=== PATIENT | female | born 1945 | race Caucasian/White ===

== ENCOUNTER 2021-04-14 12:43 | Inpatient (IN) | payer MEDICARE, OTHER, SELFPAY ==
[2021-04-14] VITALS (32 sets, daily range): BP systolic 110–186; BP diastolic 46–79; PULSE 4–88; RESP 20–38; TEMP 36.5–36.7; O2SAT 88–100
--- NOTE | ~2021-04-14 | XR_ITS ---
EXAMINATION: XR chest 1V portable INDICATION: Shortness of breath TECHNIQUE: Portable AP chest at 1301 hours COMPARISON: None available FINDINGS: Cardiomegaly is there are tfoxx-pm-[id number] sized pleural effusions. Airspace opacities are present in the mid and lower lung zones. There is a diffuse interstitial pattern. No pneumothorax is identified. A dual-lead cardiac pacemaker of the right chest wall ends with leads in expected locati ons. IMPRESSION: 1. Cardiomegaly with mild pulmonary edema. 2. Xrymh-oe-ijckumrg pleural effusions. 3. Airspace opacities of the mid and lower lung zones, consistent with atelectasis versus pneumonia. Reviewed, dictated and finalized at location A. CY DIRECTOR IMPRESSION: 1. Cardiomegaly with mild pulmonary edema. 2. Tpibs-hy-gpncmqvy pleural effusions. 3. Airspace opacities of the mid and lower lung zones, consistent with atelecta sis versus pneumonia.
--- NOTE | ~2021-04-14 | XR_ITS ---
XR chest 1V portable 04/17/2021 15:51 Indication: Pneumonia Procedure: AP portable chest Comparison: 04/14/2021 Findings: Borderline heart size. Bilateral airspace disease with moderate right pleural effusion. Pac emaker leads stable. No pneumothorax. No acute osseous abnormality. There are symmetric degenerative changes of the shoulders. Impression: 1: Bilateral airspace disease, most likely edema or pneumonia. 2: Moderate right pleural effusion. Reviewed, dictated and finalized at location A. R BALANCER Impression: 1: Bilateral airspace disease, most likely edema or pneumonia. 2: Moderate right pleural effusion.
--- NOTE | 2021-04-14 13:17 | ED.GENADULT ---
HPI - General Adult General Chief complaint: Shortness of Breath/Dyspnea Stated complaint: SOB Time Seen by Provider: 04/14/21 12:56 History of Present Illness HPI narrative: Patient is a 76-year-old female presents emerged department with chief complaint of shortness of breath. Patient has history of end-stage renal disease on dialysis and reports that she started getting more more short of breath and reports that she is not able to get a good deep breath patient reports has not missed any dialysis reports that she is not had a change in her overall body weight the patient denies fever denies chills reports has had a dry cough. Related Data Home Medications Medication Instructions Recorded Confirmed blood sugar diagnostic #10 each 08/12/19 01/30/20 cholecalciferol (vitamin D3) 50 2,000 unit PO DAILY cap 08/12/19 02/02/21 mcg (2,000 unit) capsule lancets 26 gauge #100 each 08/12/19 01/30/20 multivitamin 1 cap PO DAILY cap 08/12/19 01/30/20 calcium acetate(phosphat bind) 667 667 mg PO .COMPLEX 01/30/20 02/02/21 mg capsule apixaban 2.5 mg tablet 2.5 mg PO BID 02/02/21 02/02/21 atorvastatin 40 mg tablet 80 mg PO DAILY tablet 02/02/21 02/02/21 polyethylene glycol 3350 17 17 g PO ONCE PRN g 02/02/21 02/02/21 gram/dose oral powder Allergies Allergy/AdvReac Type Severity Reaction Status Date / Time zolpidem Allergy Unknown Agitated Verified 02/02/21 13:12 Review of Systems Review of Systems: A 10 system review of systems was completed on the patient and is negative except for what is stated in the HPI. Nursing and ancillary documentation was reviewed. [facility] [place] Past Medical History Medical History Anemia CAD (coronary artery disease) Chronic back pain Chronic ischemic heart disease Environmental allergies ESRD (end stage renal disease) on dialysis Essential (primary) hypertension GERD without esophagitis History of pulmonary embolism 2013 after left ankle replacement Hx of cardiac pacemaker 2018 Lumbar back pain with radiculopathy affecting right lower extremity Mixed hyperlipidemia GABRIELE (obstructive sleep apnea) Osteoarthritis Osteoporosis Pacemaker Pacemaker Third degree heart block Type 2 diabetes mellitus with renal complication Vitamin D deficiency Surgical History Surgical History H/O heart artery stent (~09/2018) x2 History of hysterectomy History of left ankle joint replacement 2013 Family History Family History Mother Family history of malignant neoplasm, Onset Age: 57 Patient's mother is Father Family history of coronary artery disease, Onset Age: 72 Patient's father is , Onset Age: 72 Social History Social History Smoking status: Never smoker Alcohol intake: never Exam Narrative: GENERAL: Well-appearing, well-nourished, and in mild respiratory distress HEAD: Normocephalic, atraumatic. EYES: PERRLA and EOMI. ENT: Nares clear, no rhinorrhea or epistaxis. Mucous membranes moist. NECK: Supple. CHEST: Crackles to auscultation. No respiratory distress. HEART: Regular rate and rhythm. No murmur heard. Normal peripheral pulses. ABDOMEN: Soft, nontender, nondistended, normal active bowel sounds. EXTREMITIES: Normal range of motion. No edema. SKIN: Warm, dry, no rash. NEURO: No focal deficits. Alert and oriented x3. PSYCH: Normal mood and affect. Course Vital Signs Vital signs: Vital Signs Pulse Rate 88 04/14/21 13:02 Respiratory Rate 32 H 04/14/21 13:02 Blood Pressure 186/66 H 04/14/21 13:02 Pulse Oximetry 88 L 04/14/21 13:02 Pulse Rate 4 L 04/14/21 13:15 Respiratory Rate 32 H 04/14/21 13:02 Blood Pressure 186/66 H 04/14/21 13:02 Pulse Oximetry 88 L 12
--- NOTE | 2021-04-14 13:19 | ECG_ITS ---
Measurements Intervals [place] Rate: 96 P: 244 [place]: 197 QRS: 49 QRSD: 87 T: 12 QT: 350 QTc: 442 Interpretive Statements ELECTRONIC ATRIAL PACEMAKER WITH INHIBITION SUPRAVENTRICULAR BIGEMINY AND ATRIAL AND VENTRICULAR PREMATURE COMPLEXES ANTEROSEPTAL INFARCT, AGE INDETERMINATE ST-T WAVE ABNORMALITY IN LATERAL LEADS- CONSIDER ISCHEMIA BASELINE ARTIFACT- I, II, III, AVR, AVL, AVF, V1-V6 ABNORMAL ECG Electronically Signed On 04-14-2021 13:34:40 DOUBLE END TENON OPERATOR by Michael Rdz D.O.
[2021-04-14 13:24] LABS: Basophils Absolute Auto 0.1 K/mm3 (0.0-0.1); Basophils Percent Auto 0.6 % (0.2-1.2); Eosinophils Absolute Auto 0.1 K/mm3 (0-0.3); Eosinophils Percent Auto 0.6 % (0-4.4); Hematocrit 31.9 % (37.0-47.0); Hemoglobin 9.6 g/dL (12.0-15.0); Immature Granulocyte Absolute 0.17 K/mm3 (0.00-0.031); Immature Granulocyte Percent A 0.7 % (0-0.5); Lymphocytes Absolute Auto 3.18 K/mm3 (0.9-3.2); Lymphocytes Percent Auto 13.7 % (18.3-44.2); Mean Corpuscular HGB Conc 30.1 g/dl (32-36); Mean Corpuscular Hemoglobin 27.7 pg (26-34); Mean Corpuscular Volume 91.9 fl (80-100); Mean Platelet Volume 10.3 fl (7.4-10.4); Monocytes Absolute Auto 2.3 K/mm3 (0.1-0.6); Monocytes Percent Auto 10.1 % (2.6-8.5); Neutrophils Absolute Auto 17.2 K/mm3 (1.3-6.7); Neutrophils Percent Auto 74.3 % (45.5-73.1); Platelet Count Result 426 k/mm3 (150-375); Red Blood Count 3.47 M/mm3 (4.2-5.4); Red Cell Distribution Width 16.1 % (11.5-14.5); White Blood Count 23.2 K/mm3 (4.5-10.0)
[2021-04-14 13:45] LABS: Lactic Acid Reflex 1.1 mmol/L (0.7-2.1)
[2021-04-14 13:52] LABS: Alanine Aminotransferase 16 U/L (4-35); Albumin Level 4.2 g/dL (3.5-5.1); Alkaline Phosphatase 137 U/L (38-126); Anion Gap 11 mmol/L (8-16); Aspartate Amino Transferase 28 U/L (14-36); Bilirubin,Total 0.9 mg/dL (0.2-1.3); Blood Urea Nitrogen 26 mg/dL (7-17); Calcium 10.8 mg/dL (8.4-10.2); Carbon Dioxide 34 mmol/L (22-30); Chloride 90 mmol/L (98-107); Estimated CRCL calculation 9 ml/min; Estimated Glomerular Filt Rate 8; Glucose 128 mg/dL (65-110); Potassium 3.9 mmol/L (3.4-5.0); Sodium 135 mmol/L (137-145)
[2021-04-14 13:56] LABS: Alveolar/Arterial O2 Gradient 364.9 mmHg; Base Excess ABG 3.1 mEq/l (+/-2.0); Device NON-INVASIVE VENT; Fractional Inspired Oxygen 70 %; Modified Allen's Test Pass; Oxygen Content ABG 13.6 %vol (16.0-22.0); Oxygen Saturation ABG 95.4 % (95.0-100.0); PCO2 ABG 50.7 mmHg (35.0-45.0); PO2 ABG 79.7 mmHg (80.0-100.0); PO2 FiO2 Ratio Arterial Blood 1.14 %; Site Drawn LEFT RADIAL; Total Hemoglobin 10.2 g/dL (12.0-18.0); pH ABG 7.375 (7.350-7.450)
[2021-04-14 13:57] LABS: Non-Invasive Expiratory Pressure 6 CMH2O; Non-Invasive Inspiratory Pressure 12 CMH2O; Non-Invasive Vent Rate 18 /MIN
[2021-04-14 14:02] LABS: Troponin I 0.015 ng/mL (0.000-0.034)
[2021-04-14 14:05] LABS: NT Pro B Type Natriuretic Pept > 35000 pg/mL (5-100); Troponin I 0.014 ng/mL (0.000-0.034)
[2021-04-14 15:13] LABS: Add Urine Microscopic? YES; Appearance Urine Clear (Clear); Bilirubin Urine Negative (Negative); Blood Urine Negative (Negative); Color Urine Straw (Yellow); Glucose Urine UA 1+ mg/dL (Negative); Ketones Urine Negative (Negative); Leukocyte Esterase Ur Negative LEU/UL (Negative); Nitrate Urine Negative (Negative); Protein Urine 2+ mg/dL (Negative); Specific Grav Ur 1.008 (1.001-1.035); Squamous Epithelial Cell Urine Rare /hpf (Few); Urobilinogen Urine Negative mg/dL (<2.0); WBC Urine 0-3 /hpf
[2021-04-14] MEDS: SODIUM CHLORIDE 0.9% IV 1,000 ML 999 ML IV CONT (16:59)
[2021-04-14 17:25] LABS: EDCOVIDSCREEN Negative (Negative)
--- NOTE | 2021-04-14 18:52 | ADMGEN ---
This patient, Marleen Ring, was admitted to IMU Room 204-01. Patient/family oriented to hospital policies and general routines including ID bracelet, bed and alarms, visiting hours, pain management, procedures, bathroom and other care routines, personal items, smoking policy, room service/diet, and visiting hours. Information on how to activate the Rapid Response Team has been discussed. Patient/Family are encouraged to report perceived risks to care and to ask questions if they do not understand what they are told or what they should do.
[2021-04-14 20:57] LABS: Glucose Point of Care 103 mg/dl (65-105)
--- NOTE | 2021-04-14 21:42 | PM.IMHP ---
H&P: HPI History of Present Illness Date/Time: 04/14/21 21:42 Chief Complaint: Shortness of breath Narrative: This is a 76-year-old female who presents to the ED with increasing shortness of breath. She states that she has been not feeling well for the past week or so. She has been more short of breath and also reports other is associated cough which is mostly dry. She denies any chest pain or any leg swelling. She has underlying end-stage renal disease and has been on hemodialysis and has not missed any hemodialysis session. She has received 2 of for COVID a vaccine since due for booster shot. Upon arrival to the ER she was noted to be hypoxic at 88% was put on non-rebreather mask. Later she was placed on a BiPAP for her work of breathing and was taken for emergent dialysis this evening. She had 2.5 L ultrafiltrate removed during the dialysis session and has been feeling a little better but not completely back to normal self. See is currently on nasal cannula and has been off of BiPAP. Review of Systems Review of Systems: - CONSTITUTIONAL: Denies weight loss, fever and chills. - HEENT: Denies changes in vision and hearing - RESPIRATORY: Reports SOB and cough. - CV: Denies palpitations and CP. - GI: Denies abdominal pain, nausea, vomiting and diarrhea. - : Denies dysuria and urinary frequency. - MSK: Denies myalgia and joint pain. - SKIN: Denies rash and pruritus. - NEUROLOGICAL: Denies headache and syncope. - PSYCHIATRIC: Denies recent changes in mood. Denies anxiety and depression. All systems reviewed & are unremarkable except as noted in HPI and below Constitutional: Constitutional: Reports fatigue and Reports weakness Neurologic: Reports weakness Endocrine: Endocrine: Reports fatigue [facility] Past Medical History Medical History Anemia CAD (coronary artery disease) Chronic back pain Chronic ischemic heart disease Environmental allergies ESRD (end stage renal disease) on dialysis Essential (primary) hypertension GERD without esophagitis History of pulmonary embolism 2013 after left ankle replacement Hx of cardiac pacemaker 2018 Lumbar back pain with radiculopathy affecting right lower extremity Mixed hyperlipidemia GABRIELE (obstructive sleep apnea) Osteoarthritis Osteoporosis Pacemaker Pacemaker Third degree heart block Type 2 diabetes mellitus with renal complication Vitamin D deficiency Surgical History Surgical History H/O heart artery stent (~09/2018) x2 History of hysterectomy History of left ankle joint replacement 2013 Family History Family History Mother Family history of malignant neoplasm, Onset Age: 57 Patient's mother is Father Family history of coronary artery disease, Onset Age: 72 Patient's father is , Onset Age: 72 Social History Social History Smoking status: Never smoker Second hand tobacco smoke exposure: No Alcohol intake: never Substance use: never Substance use type: does not use Spiritual care concerns: No Meds Home Medications and Allergies Home Medications Medication Instructions Recorded Confirmed Type amlodipine 10 mg tablet 10 mg PO DAILY #30 tablet 06/09/19 04/14/21 Rx blood sugar diagnostic #10 each 08/12/19 04/14/21 History lancets 26 gauge #100 each 08/12/19 04/14/21 History multivitamin 1 cap PO DAILY cap 08/12/19 04/14/21 History clopidogrel 75 mg tablet 75 mg PO DAILY #90 tablet 04/06/20 04/14/21 Rx clonidine HCl 0.2 mg tablet 0.2 mg PO DAILY #180 tablet 10/26/20 04/14/21 Rx metoprolol tartrate 50 mg tablet 50 mg PO BID #180 tablet 01/26/21 04/14/21 Rx apixaban 2.5 mg tablet 2.5 mg PO BID 02/02/21 04/14/21 History bempedoic acid [Nexle
[2021-04-14 22:10] LABS: Hepatitis B Surface Antigen Negative (Negative)
[2021-04-14 22:16] LABS: HAV RESULT Negative (Negative); Hepatitis B Core IgM Result Negative (Negative)
[2021-04-14 23:00] LABS: Hepatitis B Surface Anti Res Positive; Hepatitis C Virus Antibody Negative (Negative)
[2021-04-14] MEDS: ACETAMINOPHEN 325 MG TABLET 650 MG PO (23:16)
[2021-04-14] MEDS: APIXABAN 2.5 MG TABLET PO (23:17)
[2021-04-14] MEDS: METOPROLOL TARTRATE 50 MG TAB PO (23:56)
[2021-04-15] VITALS (35 sets, daily range): BP systolic 130–182; BP diastolic 35–78; PULSE 65–94; RESP 12–26; TEMP 35.8–37.1; O2SAT 93–97
--- NOTE | 2021-04-15 | ECHO_ITS ---
Patient Info Name: Marleen Ray White Age: 76 years : 1945 Gender: Female Ht: 60 in Wt: 190 lbs BSA: 1.96 m2 HR: 68 bpm BP: 151 / 78 mmHg Technical Quality: Fair Exam Date: 04/15/2021 9:29 AM Exam Location: [facility] Pulmonary Patient Status: Outpatient Admit Date: 04/14/2021 Staff Ordering Physician: Gerald Brooks MD [employer] Officer: Attending Provider: Mike Santana MD Exam Type: CA echo doppler color flow Study Info Indications - PULMONARY EDEMA Complete two-dimensional, color flow and Doppler transthoracic echocardiogram is performed. Summary 1. Complete two-dimensional, color flow and Doppler transthoracic echocardiogram is performed. 2. Left ventricular chamber dimension is mildly enlarged. 3. Left ventricular systolic function is normal, estimated at 60-65%. 4. There is mildly increased left ventricular wall thickness. 5. The left ventricular diastolic function is grade III diastolic dysfunction. 6. E/e' 23 is significantly elevated. 7. Linear artifact in right ventricle suggestive of catheter(s), pacemaker lead(s), or ICD lead(s). 8. Left atrial chamber dimension is severely enlarged. 9. Linear artifact in the right atrium suggestive of catheter(s), pacemaker lead(s), or ICD lead(s). 10. There is mild aortic valve sclerosis. 11. The mitral valve has severely calcified annulus. 12. There is mild to moderate mitral valve regurgitation. 13. Mild pulmonary hypertension, estimated pulmonary arterial systolic pressure is 49 mmHg. 14. There is small circumferential pericardial effusion. No cardiac tamponade. Left Ventricle E/e' 23 is significantly elevated. Left ventricular chamber dimension is mildly enlarged. Left ventricular systolic function is normal, estimated at 60-65%. There is mildly increased left ventricular wall thickness. The left ventricular diastolic function is grade III diastolic dysfunction. Right Ventricle Linear artifact in right ventricle suggestive of catheter(s), pacemaker lead(s), or ICD lead(s). Right ventricular chamber dimension is normal. Right ventricular systolic function is normal. Left Atria Left atrial chamber dimension is severely enlarged. Right Atria Linear artifact in the right atrium suggestive of catheter(s), pacemaker lead(s), or ICD lead(s). Right atrial chamber dimension is normal. Aortic Valve The aortic valve is probable trileaflet. There is mild aortic valve sclerosis. There is no aortic valve stenosis. There is no aortic valve regurgitation. Pulmonic Valve There is no pulmonic regurgitation. Mitral Valve The mitral valve has severely calcified annulus. There is no mitral valve stenosis. There is mild to moderate mitral valve regurgitation. Tricuspid Valve There is no tricuspid valve regurgitation. Mild pulmonary hypertension, estimated pulmonary arterial systolic pressure is 49 mmHg. Pericardium/Pleural There is small circumferential pericardial effusion. No cardiac tamponade. Inferior Vena Cava Normal inferior vena cava with >50% collapse upon inspiration consistent with normal right atrial pressure, 5 mmHg. Aorta The aortic root size at the sinus of Valsalva is normal. Left Ventricular Outflow Tract Name Value Normal LVOT 2D
--- NOTE | 2021-04-15 03:23 | PCRCNOTE ---
Found patient on 3 lpm nasal cannula in lieu of Bipap. SPo2 97% on 3 lpm nasal cannula with no dyspnea noted.
[2021-04-15] MEDS: ACETAMINOPHEN 325 MG TABLET 650 MG PO ×2 (08:25→21:28)
--- NOTE | 2021-04-15 09:18 | PM.IMPN ---
Progress Note: A&P Assessment and Plan (1) ESRD (end stage renal disease) on dialysis: Code(s): N18.6 - End stage renal disease; Z99.2 - Dependence on renal dialysis Status: Acute (2) Hx of cardiac pacemaker: Code(s): Z95.0 - Presence of cardiac pacemaker Status: Acute (3) CAD (coronary artery disease): Code(s): I25.10 - Atherosclerotic heart disease of [place] coronary artery without angina pectoris Status: Acute (4) Essential (primary) hypertension: Code(s): I10 - Essential (primary) hypertension Status: Chronic (5) Mixed hyperlipidemia: Code(s): E78.2 - Mixed hyperlipidemia Status: Acute (6) Type 2 diabetes mellitus with renal complication: Qualifiers: Chronic kidney disease stage: on chronic dialysis Diabetes mellitus complication detail: with chronic kidney disease Diabetes mellitus terminal computer operator insulin use: without half-way use Qualified Code(s): E11.22 - Type 2 diabetes mellitus with diabetic chronic kidney disease; N18.6 - End stage renal disease; Z99.2 - Dependence on renal dialysis Code(s): E11.29 - Type 2 diabetes mellitus with other diabetic kidney complication Status: Acute (7) GABRIELE (obstructive sleep apnea): Code(s): G47.33 - Obstructive sleep apnea (adult) (pediatric) Status: Acute (8) GERD without esophagitis: Code(s): K21.9 - Gastro-esophageal reflux disease without esophagitis Status: Acute (9) Acute respiratory failure with hypoxia: Code(s): J96.01 - Acute respiratory failure with hypoxia Status: Acute (10) Pneumonia: Code(s): J18.9 - Pneumonia, unspecified organism Status: Acute (11) Congestive heart failure: Code(s): I50.9 - Heart failure, unspecified Status: Acute Additional Plan # Acute hypoxic respiratory failure 88% on non-rebreather and hence was placed on BiPAP in the ER. Now transitioned to nasal cannula oxygen supplementation. Underwent dialysis and 2.5 L removed. EKG with paced rhythm. Chest x-ray with cardiomegaly with mild pulmonary edema small to moderate pleural effusions and airspace opacities at the mid and lower lung zone consistent with atelectasis versus pneumonia[place] [address] underlying pneumonia is suspected. Rapid COVID negative, COVID PCR pending. Troponin negative BNP elevated # bilateral pneumonia ceftriaxone azithromycin. Will check Legionella/mycoplasma/pneumococcus/sputum culture. Check MRSA nasal screen # acute on chronic congestive heart failure/pulmonary edema BNP elevated more than 35,000. Check echocardiogram. Cardiology in [facility] # Coronary artery disease status post stent 2018 # Chronic back pain # End-stage renal disease on dialysis Monday # Hypertension home medication # Hyperlipidemia home medication # History of pulmonary embolism on chronic anticoagulation Eliquis # history of atrial fibrillation/complete heart block status post Cardiac pacemaker in situ 2017 # GABRIELE # Type 2 diabetes mellitus on oral hypoglycemic agent at home. Will had SSI monitor Accu-Cheks and adjust regimen as needed # Diffuse osteoarthritis # GERD # DVT prophylaxis on apixaban # Code status full code 04/15/21 cont abx ESRD receiving HD, vol status improving hypoxic resp failure improving saturating 90s but still tachypneic cont current care bipap prn case reviewed w pulm Subjective Date/time seen: 04/15/21 09:18 seen in HD w RN pt noted to be tachypneic w use of accessory muscles. call placed to Analytical Consultant and STAT aBG ordered. pt w RR in the mid to high 30s BiPAP initiated Exam Narrative: GENERAL: Well-appearing, well-nourished, and mild acute respiratory distress HEAD: Normocephalic, atraumatic. EYES: EOMI. ENT: Nares clear, no rhinorrhea or epistaxis. Mucous membranes moist. NECK: Supple. CHEST: Crackles to auscultation. Decreased breath sounds on bilateral basal areas H
[2021-04-15 09:59] LABS: Glucose Point of Care 132 mg/dl (65-105)
--- NOTE | 2021-04-15 10:00 | PC.NURSE ---
Patient to dialysis. Report given to JANICE Aguirre.
[2021-04-15] MEDS: SODIUM CHLORIDE 0.9% IV 1,000 ML 999 ML IV CONT (10:54)
[2021-04-15] MEDS: EPOETIN ALFA-EPBX 10,000 UNITS/ML VIAL 10000 UNITS IV PUSH (10:54)
--- NOTE | 2021-04-15 11:08 | P.CDI_ITS ---
CDI Query Clarification Request Patient presented to the ED with complaints of SOB and dyspnea. Acute hypoxic respiratory failure, bilateral pneumonia, and acute on chronic congestive heart failure have been documented. Echo on 04/15 revealed normal ventricular systolic function and grade III diastolic dysfunction. Please clarify type of CHF if known: * Systolic * Diastolic * Combined/Both * Unknown <MEGHNA Jameson - Last Filed: 04/15/21 11:19> Clarified Diagnosis (1) Diastolic heart failure: Code(s): I50.30 - Unspecified diastolic (congestive) heart failure <MEGHNA Jameson - Last Filed: 04/15/21 11:19> Status: Acute <MEGHNA Jameson - Last Filed: 04/15/21 11:19> Assessment and Plan: diastlolic HF <Katie Doyle MD - Last Filed: 04/15/21 14:24>
[2021-04-15 12:22] LABS: Alveolar/Arterial O2 Gradient 252.1 mmHg; Fractional Inspired Oxygen 60 %; HCO3 ABG 23.8 mEq/l (22.0-26.0); Oxygen Content ABG 14.3 %vol (16.0-22.0); Oxygen Saturation ABG 98.6 % (95.0-100.0); Oxyhemoglobin 97.2 % THb (90.0-100.0); PO2 ABG 131.7 mmHg (80.0-100.0); PO2 FiO2 Ratio Arterial Blood 2.19 %; Total Hemoglobin 10.3 g/dL (12.0-18.0); pH ABG 7.392 (7.350-7.450)
--- NOTE | 2021-04-15 12:22 | P.PNNP_ITS ---
Progress Note: A&P Assessment and Plan (1) End stage renal disease: Code(s): N18.6 - End stage renal disease Status: Chronic Assessment and Plan: * HD today and eventually transition back to // schedule * DUF yesterday more so for fluid removal * further fluid removal today with dialysis * follow electrolytes, volume status, and clearance (2) Acute respiratory failure with hypoxia: Code(s): J96.01 - Acute respiratory failure with hypoxia Status: Acute Assessment and Plan: * presumably due to a combination of volume overload and pneumonia * COVID-19 negative * fluid removal with HD/DUF as tolerated * antibiotics for pneumonia * BIPAP as needed * follow respiratory status (3) Pneumonia: Code(s): J18.9 - Pneumonia, unspecified organism Status: Acute Assessment and Plan: * suspected by admission imaging * follow culture data * on antibiotics (4) Essential (primary) hypertension: Code(s): I10 - Essential (primary) hypertension Status: Chronic Assessment and Plan: * reasonable control at this time * follow trend of hemodynamics (5) Anemia: Code(s): D64.9 - Anemia, unspecified Status: Chronic Assessment and Plan: * due to ESRD and acute illness * Epogen with HD * follow trend of H/H (6) Diabetes: Code(s): E11.9 - Type 2 diabetes mellitus without complications Status: Chronic Assessment and Plan: * follow accuchecks * SSI if needed Will continue to follow. FULL CONSULT to follow Subjective Date/time seen: 04/15/21 12:22 Tolerating hemodialysis treatment at the time of my visit (seen at 12:00PM); respiratory status somewhat concerning so BIPAP applied; noted to have chills at this time as well so temperature of dialysis bath adjusted to help with this; tolerated DUF yesterday afternoon/evening with 3L fluid removal. Exam Narrative: General: WD/WN female with BiPAP in place Heart: normal S1 and S2; no rub Lungs: coarse breath sounds Abdomen: soft, nontender, nondistended, positive bowel sounds Extremities: no cyanosis or clubbing; trace edema Skin: warm and dry Objective Data Vital Signs Vital Signs: Vital Signs Temp Pulse Resp BP Pulse Ox 04/15/21 12:00 84 130/45 L 04/15/21 11:45 86 142/50 H 04/15/21 11:28 76 155/65 H 04/15/21 11:08 74 154/59 H 04/15/21 10:45 77 149/56 H 04/15/21 10:35 36.7 C 86 12 176/53 H 93 04/15/21 10:30 76 150/59 H 04/15/21 10:16 73 163/59 H 04/15/21 10:06 36.8 C 79 18 160/61 H 04/15/21 09:23 95 04/15/21 08:00 36.7 C 86 12 176/53 H 93 04/15/21 06:00 68 04/15/21 04:00 36.1 C L 68 20 151/78 H 94 04/15/21 02:00 72 04/15/21 01:51 97 04/15/21 00:00 71 22 H 96 04/14/21 23:56 78 04/14/21 23:31 36.5 C 70 22 H 155/46 H 92 04/14/21 23:00 67 26 H 100 04/14/21 20:30 76 22 H 97 04/14/21 20:14 99 04/14/21 20:12 67 25 H 100 04/14/21 20:00 36.6 C 76 24 H 110/79 100 04/14/21 19:30 36.7 C 81 20 146/65 H 04/14/21 19:20 67 119/52 L 04/14/21 19:15 78 120/56 L 04/14/21 19:01 139/58 L 04/14/21 1
--- NOTE | 2021-04-15 12:22 | PM.PNNEP ---
Progress Note: A&P Assessment and Plan (1) End stage renal disease: Code(s): N18.6 - End stage renal disease Status: Chronic Assessment and Plan: HD today and eventually transition back to M/W/F schedule DUF yesterday more so for fluid removal further fluid removal today with dialysis follow electrolytes, volume status, and clearance (2) Acute respiratory failure with hypoxia: Code(s): J96.01 - Acute respiratory failure with hypoxia Status: Acute Assessment and Plan: presumably due to a combination of volume overload and pneumonia COVID-19 negative fluid removal with HD/DUF as tolerated antibiotics for pneumonia BIPAP as needed follow respiratory status (3) Pneumonia: Code(s): J18.9 - Pneumonia, unspecified organism Status: Acute Assessment and Plan: suspected by admission imaging follow culture data on antibiotics (4) Essential (primary) hypertension: Code(s): I10 - Essential (primary) hypertension Status: Chronic Assessment and Plan: reasonable control at this time follow trend of hemodynamics (5) Anemia: Code(s): D64.9 - Anemia, unspecified Status: Chronic Assessment and Plan: due to ESRD and acute illness Epogen with HD follow trend of H/H (6) Diabetes: Code(s): E11.9 - Type 2 diabetes mellitus without complications Status: Chronic Assessment and Plan: follow accuchecks SSI if needed Will continue to follow. FULL CONSULT to follow Subjective Date/time seen: 04/15/21 12:22 Tolerating hemodialysis treatment at the time of my visit (seen at 12:00PM); respiratory status somewhat concerning so BIPAP applied; noted to have chills at this time as well so temperature of dialysis bath adjusted to help with this; tolerated DUF yesterday afternoon/evening with 3L fluid removal. Exam Narrative: General: WD/WN female with BiPAP in place Heart: normal S1 and S2; no rub Lungs: coarse breath sounds Abdomen: soft, nontender, nondistended, positive bowel sounds Extremities: no cyanosis or clubbing; trace edema Skin: warm and dry Objective Data Vital Signs Vital Signs: Vital Signs Temp Pulse Resp BP Pulse Ox 04/15/21 12:00 84 130/45 L 04/15/21 11:45 86 142/50 H 04/15/21 11:28 76 155/65 H 04/15/21 11:08 74 154/59 H 04/15/21 10:45 77 149/56 H 04/15/21 10:35 36.7 C 86 12 176/53 H 93 04/15/21 10:30 76 150/59 H 04/15/21 10:16 73 163/59 H 04/15/21 10:06 36.8 C 79 18 160/61 H 04/15/21 09:23 95 04/15/21 08:00 36.7 C 86 12 176/53 H 93 04/15/21 06:00 68 04/15/21 04:00 36.1 C L 68 20 151/78 H 94 04/15/21 02:00 72 04/15/21 01:51 97 04/15/21 00:00 71 22 H 96 04/14/21 23:56 78 04/14/21 23:31 36.5 C 70 22 H 155/46 H 92 04/14/21 23:00 67 26 H 100 04/14/21 20:30 76 22 H 97 04/14/21 20:14 99 04/14/21 20:12 67 25 H 100 04/14/21 20:00 36.6 C 76 24 H 110/79 100 04/14/21 19:30 36.7 C 81 20 146/65 H 04/14/21 19:20 67 119/52 L 04/14/21 19:15 78 120/56 L 04/14/21 19:01 139/58 L 04/14/21 19:00 69 139/58 L 04/14/21 18:45 69 131/61 04/14/21 18:30 67 136/59 L 04/14/21 18:15 71 158/63 H 04/14/21 18:06 65 148/77 H 04/14/21 18:00 36.6 C 68 27 H 150/65 H 98 04/14/21 16:32 84 21 H 136/68 99 04/14/21 16:15 85 30 H 100 04/14/21 15:54 85 23 H 100 04/14/21 15:31 87 21 H 125/55 L 99 04/14/21 14:47 85 32 H 155/58 H 100 04/14/21 14:15 87 27 H 186/66 H 100 04/14/21 13:50 87 25 H 100 04/14/21 13:35 85 38 H 100 04/14/21 13:33 86 35 H 100 04/14/21 13:32 86 36 H 159/56 H 100 04/14/21 13:30 85 38 H 100 04/14/21 13:18 80 96 04/14/21 13:17 88 L 04/14/21 13:15 87 37 H 96 04/14/21 13:02 88 32 H 186/66 H 88 L Int
[2021-04-15 12:23] LABS: Device NON-INVASIVE VENT; Modified Allen's Test Pass; Non-Invasive Expiratory Pressure 8 CMH2O; Non-Invasive Inspiratory Pressure 12 CMH2O; Non-Invasive Vent Rate 18 /MIN; Site Drawn LEFT RADIAL
--- NOTE | 2021-04-15 14:30 | PC.NURSE ---
Patient returned to room following dialysis. Report received from JANICE Aguirre.
[2021-04-15 14:56] LABS: Glucose Point of Care 113 mg/dl (65-105)
[2021-04-15] MEDS: ONDANSETRON INJ 4 MG/2 ML VIAL IV PUSH (15:31)
[2021-04-15] MEDS: APIXABAN 2.5 MG TABLET PO ×2 (15:31→21:27)
[2021-04-15] MEDS: amLODIPine BESYLATE 5 MG TABLET 10 MG PO (15:31)
[2021-04-15] MEDS: CLOPIDOGREL BISULFATE 75 MG TABLET PO (15:31)
[2021-04-15] MEDS: METOPROLOL TARTRATE 50 MG TAB PO ×2 (15:31→21:27)
[2021-04-15] MEDS: cloNIDine HCL 0.2 MG TABLET PO (15:31)
[2021-04-15] MEDS: PANTOPRAZOLE 40 MG TABLET PO (15:32)
[2021-04-15] MEDS: MULTIVITAMINS THERAPEUTIC TAB (*BKC) 1 TABLET PO (15:32)
[2021-04-15] MEDS: DOXAZOSIN MESYLATE 2 MG TABLET 4 MG PO (15:32)
[2021-04-15 20:27] LABS: Glucose Point of Care 138 mg/dl (65-105)
[2021-04-16] VITALS (12 sets, daily range): BP systolic 121–151; BP diastolic 35–55; PULSE 61–81; RESP 16–20; TEMP 36.1–37.1; O2SAT 93–100
[2021-04-16 08:42] LABS: Glucose Point of Care 88 mg/dl (65-105)
[2021-04-16] MEDS: METOPROLOL TARTRATE 50 MG TAB PO ×2 (09:06→20:58)
[2021-04-16] MEDS: CLOPIDOGREL BISULFATE 75 MG TABLET PO (09:06)
[2021-04-16] MEDS: amLODIPine BESYLATE 5 MG TABLET 10 MG PO (09:06)
[2021-04-16] MEDS: MULTIVITAMINS THERAPEUTIC TAB (*BKC) 1 TABLET PO (09:06)
[2021-04-16] MEDS: cloNIDine HCL 0.2 MG TABLET PO (09:06)
[2021-04-16] MEDS: APIXABAN 2.5 MG TABLET PO ×2 (09:06→20:58)
[2021-04-16] MEDS: PANTOPRAZOLE 40 MG TABLET PO (09:06)
[2021-04-16] MEDS: DOXAZOSIN MESYLATE 2 MG TABLET 4 MG PO (09:07)
--- NOTE | 2021-04-16 09:16 | PC.NURSE ---
MRSA not done - spoke with Gabby RN (infection disease nurse )- mrsa - MD informed on 04/15/2021- by RN
--- NOTE | 2021-04-16 09:47 | PM.IMPN ---
Progress Note: A&P Assessment and Plan (1) Diastolic heart failure: Code(s): I50.30 - Unspecified diastolic (congestive) heart failure Status: Acute Assessment and Plan: diastlolic HF Additional Plan # Acute hypoxic respiratory failure 88% on non-rebreather and hence was placed on BiPAP in the ER. Now transitioned to nasal cannula oxygen supplementation. Underwent dialysis and 2.5 L removed. EKG with paced rhythm. Chest x-ray with cardiomegaly with mild pulmonary edema small to moderate pleural effusions and airspace opacities at the mid and lower lung zone consistent with atelectasis versus pneumonia[place] [id number] underlying pneumonia is suspected. Rapid COVID negative, COVID PCR pending. Troponin negative BNP elevated # bilateral pneumonia ceftriaxone azithromycin. Will check Legionella/mycoplasma/pneumococcus/sputum culture. Check MRSA nasal screen # acute on chronic congestive heart failure/pulmonary edema BNP elevated more than 35,000. Check echocardiogram. Cardiology in [facility] # Coronary artery disease status post stent 2018 # Chronic back pain # End-stage renal disease on dialysis Monday # Hypertension home medication # Hyperlipidemia home medication # History of pulmonary embolism on chronic anticoagulation Eliquis # history of atrial fibrillation/complete heart block status post Cardiac pacemaker in situ 2017 # GABRIELE # Type 2 diabetes mellitus on oral hypoglycemic agent at home. Will had SSI monitor Accu-Cheks and adjust regimen as needed # Diffuse osteoarthritis # GERD # DVT prophylaxis on apixaban # Code status full code 04/15/21 cont abx ESRD receiving HD, vol status improving hypoxic resp failure improving saturating 90s but still tachypneic cont current care bipap prn case reviewed w pulm 04/16/21 new onset CHF w volume overload in HD dependent pt consult cardio nephro following resp status improved cont current care anticipate dc home tomorrow Subjective Date/time seen: 04/16/21 09:47 pt states that she is feeling a lot better new onset CHF cardiology consulted and recs appreciated Exam Narrative: GENERAL: Well-appearing, well-nourished, and mild acute respiratory distress HEAD: Normocephalic, atraumatic. EYES: EOMI. ENT: Nares clear, no rhinorrhea or epistaxis. Mucous membranes moist. NECK: Supple. CHEST: Crackles to auscultation. Decreased breath sounds on bilateral basal areas HEART: Regular rate and rhythm. No murmur heard. Normal peripheral pulses. ABDOMEN: Soft, nontender, nondistended, normal active bowel sounds. EXTREMITIES: Normal range of motion. No edema. SKIN: Warm, dry, no rash. NEURO: No focal deficits. Alert and oriented x3. PSYCH: Normal mood and affect. Objective Data Vital Signs Vital Signs: Vital Signs - 24 hr 04/15/21 10:00 04/15/21 10:06 04/15/21 10:16 Temperature 98.2 F Pulse Rate 78 79 73 Respiratory Rate 18 Blood Pressure 160/61 H 163/59 H Pulse Oximetry 04/15/21 10:30 04/15/21 10:35 04/15/21 10:45 Temperature 98.1 F Pulse Rate 76 86 77 Respiratory Rate 12 Blood Pressure 150/59 H 176/53 H 149/56 H Pulse Oximetry 93 04/15/21 11:08 04/15/21 11:28 04/15/21 11:45 Temperature Pulse Rate 74 76 86 Respiratory Rate Blood Pressure 154/59 H 155/65 H 142/50 H Pulse Oximetry 04/15/21 12:00 04/15/21 12:15 04/15/21 12:30 Temperature Pulse Rate 82 76 77 Respiratory Rate Blood Pressure 130/45 L 147/50 H 132/42 L Pulse Oximetry 04/15/21 12:45 04/15/21 13:00 04/15/21 13:15 Temperature Pulse Rate 75 81 82 Respiratory Rate Blood Pressure 148/45 H 155/51 H 161/44 H Pulse Oximetry 04/15/21 13:30 04/15/21 13:48 04/15/21 14:00 Temperature 97.8 F Pulse Rate 84 85 91 Respiratory Rate 26 H Blood Pressure 152/53 H 152/53 H Pulse Oximetry 93 04/15/21 14:30 04/15/21 15:04 04/15/21 15:31 Temperature 98.7 F Pulse
[2021-04-16 10:23] LABS: Anion Gap 11 mmol/L (8-16); Blood Urea Nitrogen 22 mg/dL (7-17); Calcium 11.5 mg/dL (8.4-10.2); Carbon Dioxide 24 mmol/L (22-30); Chloride 97 mmol/L (98-107); Estimated CRCL calculation 9 ml/min; Estimated Glomerular Filt Rate 10; Glucose 149 mg/dL (65-110); Potassium 4.5 mmol/L (3.4-5.0); Sodium 132 mmol/L (137-145)
--- NOTE | 2021-04-16 10:31 | PC.NURSE ---
pt transferred to room 309- 3 med/surg- via bed-O2 on 4l/nc- report was given to Rossana CAMACHO- personal belongings with pt
[2021-04-16 11:23] LABS: SARS-CoV-2 RNA PCR Negative (Negative)
--- NOTE | 2021-04-16 12:51 | PM.CNNEP ---
Assessment and Plan Assessment and plan (1) End stage renal disease: Code(s): N18.6 - End stage renal disease Status: Chronic Assessment and Plan: plan HD tomorrow and eventually transition back to M/W/F schedule next week HD yesterday for further fluid removal and removal of uremic toxins follow electrolytes, volume status, and clearance (2) Acute respiratory failure with hypoxia: Code(s): J96.01 - Acute respiratory failure with hypoxia Status: Acute Assessment and Plan: clinically improving if not back to baseline presumably due to a combination of volume overload and pneumonia COVID-19 negative fluid removal with HD/DUF as tolerated antibiotics for pneumonia BIPAP as needed follow respiratory status (3) Pneumonia: Code(s): J18.9 - Pneumonia, unspecified organism Status: Acute Assessment and Plan: suspected by admission imaging follow culture data on antibiotics (4) Essential (primary) hypertension: Code(s): I10 - Essential (primary) hypertension Status: Chronic Assessment and Plan: reasonable control at this time follow trend of hemodynamics (5) Anemia: Code(s): D64.9 - Anemia, unspecified Status: Chronic Assessment and Plan: due to ESRD and acute illness Epogen with HD follow trend of H/H (6) Diabetes: Code(s): E11.9 - Type 2 diabetes mellitus without complications Status: Chronic Assessment and Plan: follow accuchecks glycemic control Will continue to follow. History of Present Illness Reason for Consult Consult date: 04/16/21 Reason for consult: end stage renal disease Chief Complaint Chief complaint: fluid overload,chf,pneumonia History of Present Illness Narrative: 76-year-old female who presents to the ED with increasing shortness of breath. She states that she has been not feeling well for the past week or so. She has been more short of breath and also reports other is associated cough which is mostly dry. She denies any chest pain or any leg swelling. She has underlying end-stage renal disease and has been on hemodialysis and has not missed any hemodialysis session. She has received 2 of for COVID a vaccine since due for booster shot. Upon arrival to the ER she was noted to be hypoxic at 88% was put on non-rebreather mask. Later she was placed on a BiPAP for her work of breathing and was taken for emergent dialysis this evening. She had 2.5 L ultrafiltrate removed during the dialysis session and has been feeling a little better but not completely back to normal self. See is currently on nasal cannula and has been off of BiPAP. Review of Systems Review of Systems: As per HPI. [facility] Past Medical History Medical History Anemia CAD (coronary artery disease) Chronic back pain Chronic ischemic heart disease Environmental allergies ESRD (end stage renal disease) on dialysis Essential (primary) hypertension GERD without esophagitis History of pulmonary embolism 2013 after left ankle replacement Hx of cardiac pacemaker 2018 Lumbar back pain with radiculopathy affecting right lower extremity Mixed hyperlipidemia GABRIELE (obstructive sleep apnea) Osteoarthritis Osteoporosis Pacemaker Pacemaker Third degree heart block Type 2 diabetes mellitus with renal complication Vitamin D deficiency Surgical History Surgical History H/O heart artery stent (~09/2018) x2 History of hysterectomy 2000s History of left ankle joint replacement 2013 Family History Family History Mother Family history of malignant neoplasm, Onset Age: 57 Patient's mother is Father Family history of coronary artery disease, Onset Age: 72 Patient's father is deceas
--- NOTE | 2021-04-16 15:30 | PM.CNCAR ---
Assessment and Plan Assessment and plan (1) Acute heart failure with preserved ejection fraction: Code(s): I50.31 - Acute diastolic (congestive) heart failure Status: Acute Assessment and Plan: Patient presents with acute on chronic heart failure with preserved ejection fraction likely due to suboptimal fluid removal with hemodialysis. Resolved with volume management and ultrafiltrate removal with hemodialysis. Continue volume management with hemodialysis as scheduled per Nephrology. Patient is now centrally at her baseline. No evidence of acute myocardial ischemia/infarction with negative troponin or anginal symptoms. No further workup recommended at this time. Preserved EF 60-65%. Disposition per hospitalist service. Thank you very much for this consultation. Should we be of further assistance please do not hesitate to contact us. Patient will follow-up with Dr. Garcia her [facility] as an outpatient in 2 weeks. (2) ESRD (end stage renal disease) on dialysis: Code(s): N18.6 - End stage renal disease; Z99.2 - Dependence on renal dialysis Status: Acute Assessment and Plan: Patient admits less fluid was removed with hemodialysis of late per her decision which she now believes was a mistake. Defer to Nephrology. (3) CAD (coronary artery disease): Code(s): I25.10 - Atherosclerotic heart disease of [place] coronary artery without angina pectoris Status: Acute Assessment and Plan: Negative troponins, no anginal symptoms. Continue aggressive medical therapy. Continue metoprolol, resume atorvastatin 40 mg at bedtime. She has been maintained on clopidogrel 75 mg daily as an outpatient and apixaban 2.5 mg b.i.d.. Follow-up with her room attendants as an outpatient. (4) Essential (primary) hypertension: Code(s): I10 - Essential (primary) hypertension Status: Chronic Assessment and Plan: BP fair although not ideally controlled. Continue home antihypertensive regimen. (5) Mixed hyperlipidemia: Code(s): E78.2 - Mixed hyperlipidemia Status: Acute Assessment and Plan: Resume atorvastatin 40 mg at bedtime. Goal LDL less than 70. (6) Anemia: Code(s): D64.9 - Anemia, unspecified Status: Chronic Assessment and Plan: Stable, no evidence of acute bleed. (7) Hx of cardiac pacemaker: Code(s): Z95.0 - Presence of cardiac pacemaker Status: Acute Assessment and Plan: No acute issues. Predominantly atrial paced. (8) Atrial flutter, paroxysmal: Code(s): I48.92 - Unspecified atrial flutter Status: Acute Assessment and Plan: Predominant atrial paced. Continue systemic anticoagulation. (9) Chronic anticoagulation: Code(s): Z79.01 - [facility] (current) use of anticoagulants Status: Acute Assessment and Plan: Apixaban 2.5 mg b.i.d.. History of Present Illness History of Present Illness Consult date/time: Date of service: 04/16/21 14:00 Cardiology consultation at the request of Dr. Doyle of the [facility] service for opinion regarding shortness of breath and congestive heart failure. Requesting physician: Katie Doyle MD Consult reason: congestive heart failure Reason For Visit: fluid overload,chf,pneumonia Narrative: Patient is a 76-year-old female admitted 04/14/2021 with a past medical history significant for end-stage renal disease on hemodialysis, hypertension, CAD with history of stents, type 2 diabetes mellitus, mixed dyslipidemia, hypertension, sick sinus syndrome status post pacemaker, history of paroxysmal atrial flutter on Eliquis, 2D echocardiogram September 2020 with her primary room attendants Dr. Garcia EF 67% moderate left atrial enlargement mild aortic stenosis mild mitral regurgitation who presents emerged part with complaints of progressive shortness of breath. Patient states she was hospitalized with pneumonia and Salmonella poisoning 3-4 weeks ago.
[2021-04-17] VITALS (25 sets, daily range): BP systolic 126–177; BP diastolic 41–84; PULSE 65–78; RESP 16–18; TEMP 36–36.8; O2SAT 92–100
--- NOTE | 2021-04-17 08:28 | PC.NURSE ---
to dialysis per recliner with oxygen
--- NOTE | 2021-04-17 09:44 | PCPTNOTE ---
Attempted therapy, but pt in dialysis at this time. Will check again later today.
--- NOTE | 2021-04-17 11:16 | P.PNNP_ITS ---
Progress Note: A&P Assessment and Plan (1) End stage renal disease: Code(s): N18.6 - End stage renal disease Status: Chronic Assessment and Plan: * HD today and eventually transition back to M/W/F schedule next week * follow electrolytes, volume status, and clearance (2) Acute respiratory failure with hypoxia: Code(s): J96.01 - Acute respiratory failure with hypoxia Status: Acute Assessment and Plan: * clinically improving if not back to baseline * presumably due to a combination of volume overload and pneumonia * COVID-19 negative * fluid removal with HD/DUF as tolerated * antibiotics for pneumonia(?) * BIPAP as needed * follow respiratory status (3) Pneumonia: Code(s): J18.9 - Pneumonia, unspecified organism Status: Acute Assessment and Plan: * suspected by admission imaging * follow culture data * on antibiotics (4) Essential (primary) hypertension: Code(s): I10 - Essential (primary) hypertension Status: Chronic Assessment and Plan: * reasonable control at this time * follow trend of hemodynamics (5) Anemia: Code(s): D64.9 - Anemia, unspecified Status: Chronic Assessment and Plan: * due to ESRD and acute illness * Epogen with HD * follow trend of H/H (6) Diabetes: Code(s): E11.9 - Type 2 diabetes mellitus without complications Status: Chronic Assessment and Plan: * follow accuchecks * glycemic control Will continue to follow - not opposed to discharge from renal perspective if otherwise medically stable. Subjective Date/time seen: 04/17/21 11:16 Tolerating dialysis at the time of my visit (seen on HD at 11:00am); breathing/respiratory status seems to be doing quite well currently; no apparent distress voiced; no other complaints noted; no issues/events overnight or earlier this morning. Exam Narrative: General: WD/WN female in NAD Heart: normal S1 and S2; no rub Lungs: clear anteriorly; decreased at bases Abdomen: soft, nontender, nondistended, positive bowel sounds Extremities: no cyanosis or clubbing; no edema Skin: warm and intact Objective Data Vital Signs Vital Signs: Vital Signs Temp Pulse Resp BP Pulse Ox 04/17/21 11:00 78 157/59 H 04/17/21 10:45 68 164/57 H 04/17/21 10:30 70 161/56 H 04/17/21 10:15 73 153/61 H 04/17/21 10:00 71 144/55 H 04/17/21 09:45 74 161/49 H 04/17/21 09:30 70 156/59 H 04/17/21 09:15 69 158/71 H 04/17/21 09:00 75 151/84 H 04/17/21 08:39 73 177/42 H 04/17/21 08:25 36.8 C 73 18 126/66 04/17/21 08:00 100 04/17/21 06:00 36.1 C L 76 16 151/49 H 100 04/17/21 05:21 65 04/17/21 04:00 66 04/16/21 22:00 36.5 C 70 18 147/42 H 96 04/16/21 20:58 66 04/16/21 20:00 65 96 04/16/21 14:00 36.1 C L 63 19 121/35 L 100 04/16/21 12:00 64 Intake/Output Intake/Output: Intake & Output 04/14/21 04/15/21 04/16/21 04/17/21 23:59 23:59 23:59 23:59 Intake Total 5158 492 1088 240 Output Total 3100 1930 200 Balance -1800 -1330 1960 240 Meds/Results Medications: Active
--- NOTE | 2021-04-17 11:16 | PM.PNNEP ---
Progress Note: A&P Assessment and Plan (1) End stage renal disease: Code(s): N18.6 - End stage renal disease Status: Chronic Assessment and Plan: HD today and eventually transition back to M/W/F schedule next week follow electrolytes, volume status, and clearance (2) Acute respiratory failure with hypoxia: Code(s): J96.01 - Acute respiratory failure with hypoxia Status: Acute Assessment and Plan: clinically improving if not back to baseline presumably due to a combination of volume overload and pneumonia COVID-19 negative fluid removal with HD/DUF as tolerated antibiotics for pneumonia(?) BIPAP as needed follow respiratory status (3) Pneumonia: Code(s): J18.9 - Pneumonia, unspecified organism Status: Acute Assessment and Plan: suspected by admission imaging follow culture data on antibiotics (4) Essential (primary) hypertension: Code(s): I10 - Essential (primary) hypertension Status: Chronic Assessment and Plan: reasonable control at this time follow trend of hemodynamics (5) Anemia: Code(s): D64.9 - Anemia, unspecified Status: Chronic Assessment and Plan: due to ESRD and acute illness Epogen with HD follow trend of H/H (6) Diabetes: Code(s): E11.9 - Type 2 diabetes mellitus without complications Status: Chronic Assessment and Plan: follow accuchecks glycemic control Will continue to follow - not opposed to discharge from renal perspective if otherwise medically stable. Subjective Date/time seen: 04/17/21 11:16 Tolerating dialysis at the time of my visit (seen on HD at 11:00am); breathing/respiratory status seems to be doing quite well currently; no apparent distress voiced; no other complaints noted; no issues/events overnight or earlier this morning. Exam Narrative: General: WD/WN female in NAD Heart: normal S1 and S2; no rub Lungs: clear anteriorly; decreased at bases Abdomen: soft, nontender, nondistended, positive bowel sounds Extremities: no cyanosis or clubbing; no edema Skin: warm and intact Objective Data Vital Signs Vital Signs: Vital Signs Temp Pulse Resp BP Pulse Ox 04/17/21 11:00 78 157/59 H 04/17/21 10:45 68 164/57 H 04/17/21 10:30 70 161/56 H 04/17/21 10:15 73 153/61 H 04/17/21 10:00 71 144/55 H 04/17/21 09:45 74 161/49 H 04/17/21 09:30 70 156/59 H 04/17/21 09:15 69 158/71 H 04/17/21 09:00 75 151/84 H 04/17/21 08:39 73 177/42 H 04/17/21 08:25 36.8 C 73 18 126/66 04/17/21 08:00 100 04/17/21 06:00 36.1 C L 76 16 151/49 H 100 04/17/21 05:21 65 04/17/21 04:00 66 04/16/21 22:00 36.5 C 70 18 147/42 H 96 04/16/21 20:58 66 04/16/21 20:00 65 96 04/16/21 14:00 36.1 C L 63 19 121/35 L 100 04/16/21 12:00 64 Intake/Output Intake/Output: Intake & Output 04/14/21 04/15/21 04/16/21 04/17/21 23:59 23:59 23:59 23:59 Intake Total 0112 096 8008 240 Output Total 3100 1930 200 Balance -1800 -1330 1960 240 Meds/Results Medications: Active Medications Generic Name Dose Route Start Last Admin Trade Name Javy PRN Reason Stop Dose Admin Acetaminophen 650 mg 04/14/21 22:04 04/15/21 21:28 Acetaminophen 325 Mg Tablet PO 650 mg Q6H PRN Administration Mild Pain (1-3) or Fever Amlodipine Besylate 10 mg 04/15/21 09:00 04/16/21 09:06 Amlodipine Besylate 5 Mg Tablet PO 10 mg DAILY BRADY Administration Apixaban 2.5 mg 04/14/21 22:50 04/16/21 20:58 Apixaban 2.5 Mg Tablet PO 2.5 mg Q12HR BRADY Administration Atorvastatin Calcium 40 mg 04/17/21 09:00 Atorvastatin 40 Mg Tablet PO DAILY BRADY Clonidine HCl 0.2 mg 04/15/21 09:00 04/16/21 09:06 Clonidine Hcl 0.2 Mg Tablet PO 0.2 mg DAILY BRADY Administration Clopidogrel Bisulfate 75 mg 04/15/21 09:00 04/16/21 09:06 Allan
[2021-04-17] MEDS: ATORVASTATIN 40 MG TABLET PO (12:03)
[2021-04-17] MEDS: DOXAZOSIN MESYLATE 2 MG TABLET 4 MG PO (12:47)
[2021-04-17] MEDS: amLODIPine BESYLATE 5 MG TABLET 10 MG PO (12:47)
[2021-04-17] MEDS: PANTOPRAZOLE 40 MG TABLET PO (12:48)
[2021-04-17] MEDS: APIXABAN 2.5 MG TABLET PO (12:48)
[2021-04-17] MEDS: CLOPIDOGREL BISULFATE 75 MG TABLET PO (12:48)
[2021-04-17] MEDS: cloNIDine HCL 0.2 MG TABLET PO (12:48)
[2021-04-17] MEDS: METOPROLOL TARTRATE 50 MG TAB PO (12:48)
[2021-04-17] MEDS: MULTIVITAMINS THERAPEUTIC TAB (*BKC) 1 TABLET PO (12:48)
--- NOTE | 2021-04-17 15:15 | PM.DS ---
DS: Admitting Diagnosis Discharge Date 04/17/21 Admitting Diagnosis (1) ESRD (end stage renal disease) on dialysis: Code(s): N18.6 - End stage renal disease; Z99.2 - Dependence on renal dialysis Status: Acute (2) Hx of cardiac pacemaker: Code(s): Z95.0 - Presence of cardiac pacemaker Status: Acute (3) CAD (coronary artery disease): Code(s): I25.10 - Atherosclerotic heart disease of [place] coronary artery without angina pectoris Status: Acute (4) Essential (primary) hypertension: Code(s): I10 - Essential (primary) hypertension Status: Acute (5) Mixed hyperlipidemia: Code(s): E78.2 - Mixed hyperlipidemia Status: Acute (6) Type 2 diabetes mellitus with renal complication: Qualifiers: Chronic kidney disease stage: on chronic dialysis Diabetes mellitus complication detail: with chronic kidney disease Diabetes mellitus senior living insulin use: without senior living use Qualified Code(s): E11.22 - Type 2 diabetes mellitus with diabetic chronic kidney disease; N18.6 - End stage renal disease; Z99.2 - Dependence on renal dialysis Code(s): E11.29 - Type 2 diabetes mellitus with other diabetic kidney complication Status: Acute (7) GABRIELE (obstructive sleep apnea): Code(s): G47.33 - Obstructive sleep apnea (adult) (pediatric) Status: Acute (8) GERD without esophagitis: Code(s): K21.9 - Gastro-esophageal reflux disease without esophagitis Status: Acute (9) Acute respiratory failure with hypoxia: Code(s): J96.01 - Acute respiratory failure with hypoxia Status: Acute (10) Pneumonia: Code(s): J18.9 - Pneumonia, unspecified organism Status: Acute (11) Congestive heart failure: Code(s): I50.9 - Heart failure, unspecified Status: Acute DS: Discharge Diagnosis Discharge Diagnosis (1) Chronic anticoagulation: Code(s): Z79.01 - access services representative (current) use of anticoagulants Status: Acute (2) Atrial flutter, paroxysmal: Code(s): I48.92 - Unspecified atrial flutter Status: Acute (3) Acute heart failure with preserved ejection fraction: Code(s): I50.31 - Acute diastolic (congestive) heart failure Status: Acute (4) Diastolic heart failure: Code(s): I50.30 - Unspecified diastolic (congestive) heart failure Status: Acute (5) Anemia: Code(s): D64.9 - Anemia, unspecified Status: Chronic (6) Diabetes: Code(s): E11.9 - Type 2 diabetes mellitus without complications Status: Chronic (7) End stage renal disease: Code(s): N18.6 - End stage renal disease Status: Chronic (8) Pneumonia: Code(s): J18.9 - Pneumonia, unspecified organism Status: Acute (9) Acute respiratory failure with hypoxia: Code(s): J96.01 - Acute respiratory failure with hypoxia Status: Acute DS: Summary Hospital Course Reason for hospitalization: Shortness of breath Hospital Course: 76-year-old female admitted to the hospital with acute onset of shortness of breath secondary to volume overload associated with end-stage renal disease and dialysis dependency. Patient had a benign clinical course. She underwent hemodialysis with approximately 5 L removed and was subsequently [facility] a [facility] in stable condition on p.o. antibiotic to cover her for pneumonia requiring 2 L of oxygen. Anticipate her established ancillary specialist to continue removal of excess fluid during her dialysis sessions. Cardiology was consulted for new onset congestive heart failure and patient was continued on metoprolol atorvastatin clopidogrel and apixaban she was given indications of follow-up with her established export freight clerk and to be compliant with her hemodialysis. Status at Discharge Overall status at discharge: patient is progressing back to baseline Time Spent with Patient Time attestation: Total time spent providing and/or coordinating disc
[2021-04-17 15:50] LABS: Basophils Absolute Auto 0.1 K/mm3 (0.0-0.1); Basophils Percent Auto 1.1 % (0.2-1.2); Eosinophils Absolute Auto 0.1 K/mm3 (0-0.3); Eosinophils Percent Auto 0.8 % (0-4.4); Hematocrit 30.9 % (37.0-47.0); Hemoglobin 9.2 g/dL (12.0-15.0); Immature Granulocyte Percent A 0.8 % (0-0.5); Lymphocytes Absolute Auto 1.34 K/mm3 (0.9-3.2); Mean Corpuscular HGB Conc 29.8 g/dl (32-36); Mean Corpuscular Volume 94.2 fl (80-100); Mean Platelet Volume 10.1 fl (7.4-10.4); Monocytes Absolute Auto 1.4 K/mm3 (0.1-0.6); Monocytes Percent Auto 11.2 % (2.6-8.5); Neutrophils Absolute Auto 9.2 K/mm3 (1.3-6.7); Neutrophils Percent Auto 75.1 % (45.5-73.1); Platelet Count Result 303 k/mm3 (150-375); Red Blood Count 3.28 M/mm3 (4.2-5.4); Red Cell Distribution Width 15.9 % (11.5-14.5); White Blood Count 12.2 K/mm3 (4.5-10.0)
[2021-04-17] MEDS: levoFLOXacin 500 MG TABLET PO (17:43)
[2021-04-19 17:28] LABS: Legionella pneumophila Ag Ur Not Detected (Not Detected)
[2021-04-20 15:23] LABS: Pneumococcal Antigen Urine Not Detected (Not Detected)
[2021-04-20 20:39] LABS: Mycoplasma IgM Antibody Titer 240 U/mL (<770)
[2021-04-21 05:02] LABS: Hepatitis B Core Ab Total Nonreactive (Nonreactive)
== END 2021-04-17 19:21 | DRG 682 ==
LOC: ANHED 13:07 → ANHIMU 23:44 → ANH3MEDSUR 04-17 15:15 → ANHIMU 04-19 15:29
PROVIDERS: Internal Medicine; Internal Medicine Nephrology; Admitting Provider Internal Medicine; Emergency Provider Emergency Medicine; PCP Family Medicine; Visit Provider Hospitalist
DX: I12.0 Hypertensive chronic kidney disease with stage 5 chronic kidney disease or end stage renal disease (principal); N18.6 End stage renal disease; J96.01 Acute respiratory failure with hypoxia; J18.9 Pneumonia, unspecified organism; I50.33 Acute on chronic diastolic (congestive) heart failure; I48.92 Unspecified atrial flutter; Z20.822 Contact with and (suspected) exposure to COVID-19; I25.10 Atherosclerotic heart disease of native coronary artery without angina pectoris; E78.2 Mixed hyperlipidemia; E11.22 Type 2 diabetes mellitus with diabetic chronic kidney disease; G47.33 Obstructive sleep apnea (adult) (pediatric); K21.9 Gastro-esophageal reflux disease without esophagitis; M81.0 Age-related osteoporosis without current pathological fracture; E55.9 Vitamin D deficiency, unspecified; M19.90 Unspecified osteoarthritis, unspecified site; D63.1 Anemia in chronic kidney disease; Z96.662 Presence of left artificial ankle joint; Z99.2 Dependence on renal dialysis; Z95.0 Presence of cardiac pacemaker; Z86.711 Personal history of pulmonary embolism; Z95.5 Presence of coronary angioplasty implant and graft; Z90.710 Acquired absence of both cervix and uterus
CPT/HCPCS: 36415; 36600; 51701; 71045; 80048; 80053; 80074; 81001; 82805; 82948; 83605; 83735; 83880; 84484; 85025; 86704; 86706; 86738; 87040; 87081; 87426; 87449; 87899; 93005; 93306; 94002; 96361; 96365; 96367; 97162; 99285; A9270; C9803; G0257; G0378; J0456; J0696; J2405; J7030; Q5105; U0003; U0005